=== PATIENT | male | born 1940 | race Caucasian/White ===

== ENCOUNTER 2016-06-07 22:17 | Inpatient (IN) | payer MEDICARE, OTHER ==
[~2016-06-07] VITALS: Ht 165.1 cm; Wt 59.6 kg
[~2016-06-07 22:17] MED LIST: AMLO10 PO; CIPR500T4 PO; ZOFR4TAB3 SL
[2016-06-07 22:36] VITALS: BP 145/63; PULSE 56; RESP 22; TEMP 97.9; O2SAT 97
[2016-06-08 00:24] LABS: AUTOMATED NEUTROPHIL # 4.3 TH/MM3 (1.8-7.7); BASOPHIL % 0.6 % (0.0-2.0); EOSINOPHIL # 0.4 TH/MM3 (0-0.4); EOSINOPHIL % 5.4 % (0.0-4.0); HEMATOCRIT 36.3 % (39.0-51.0); HEMO FLAGS DIFF FINAL; LYMPH % 20.1 % (9.0-44.0); LYMPHOCYTE # 1.3 TH/MM3 (1.0-4.8); MEAN CELL VOLUME 85.1 FL (80.0-100.0); MEAN CORPUSCULAR HEMOGLOBIN 28.5 PG (27.0-34.0); MEAN CORPUSCULAR HGB CONC 33.5 % (32.0-36.0); MONO % 9.1 % (0.0-8.0); NEUT % 64.8 % (16.0-70.0); PLATELET COUNT 184 TH/MM3 (150-450); RED BLOOD COUNT 4.27 MIL/MM3 (4.50-5.90); RED CELL DISTRIBUTION WIDTH 13.5 % (11.6-17.2); WHITE BLOOD COUNT 6.6 TH/MM3 (4.0-11.0)
[2016-06-08 00:28] LABS: AMPHETAMINE, URINE NEG (NEG); BARBITURATES, URINE NEG (NEG); COCAINE, URINE NEG (NEG)
[2016-06-08 00:53] LABS: ALT (GPT) 29 U/L (12-78); ANION GAP 5 MEQ/L (5-15); AST (GOT) 24 U/L (15-37); BICARBONATE 29.7 MEQ/L (21.0-32.0); BLOOD UREA NITROGEN 24 MG/DL (7-18); CHLORIDE 109 MEQ/L (98-107); GLOMERULAR FILTRATION RATE 86 ML/MIN (>89); POTASSIUM 4.1 MEQ/L (3.5-5.1); SODIUM (NA) 144 MEQ/L (136-145)
[2016-06-08 00:55] LABS: ALKALINE PHOSPHATASE 92 U/L (45-117); TOTAL BILIRUBIN ADULT 0.7 MG/DL (0.2-1.0)
--- NOTE | 2016-06-08 01:22 | PD ---
HPI Chief Complaint: Psychiatric Symptoms Time Seen by Provider: 23:23 Travel History International Travel<30 days: No Contact w/Intl Traveler<30days: No Traveled to known affect area: No History of Present Illness HPI The patient 76 years old. He has arrived by EMS as a allen act. He suffers with schizophrenic disease and was found essentially walking around in public evidently due to homelessness and psychosis. He was brought to the [facility], [place] facility for treatment however upon arrival was observed to have a Matthews catheter. As that is beyond the scope care he was sent to the ER for management. Here the patient offers minimal valuable history. Psychiatric screening orders were placed. Urinalysis also will be sent. If positive the Matthews catheter will be replaced and the patient will receive Rocephin and Bactrim prescription is prior culture isolates were sensitive to Bactrim. PFSH Past Medical History Anxiety: Yes Depression: Yes Cardiovascular Problems: Yes Diminished Hearing: No Genitourinary: Yes (retention/indwelling cath SINCE 2006) Hypertension: Yes Kidney Stones: Yes Musculoskeletal: Yes Psychiatric: Yes Integumentary: Yes (BILATERAL LOWER LEG CELLULITIS) Past Surgical History Other Surgery: Yes (2007 hernia, had matthews since then) Social History Alcohol Use: No Tobacco Use: No Substance Use: No Allergies-Medications (Allergen,Severity, Reaction): Coded Allergies: Penicillin (Unverified Allergy, Unknown, 05/24/15) *MDRO Multi-Drug Resistant Organism (Unverified Adverse Reaction, Unknown , 05/28/15) 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 HEAD: Atraumatic. Normocephalic. EYES: Pupils equal and round. No scleral icterus. No injection or drainage. ENT: No nasal bleeding or discharge. Mucous membranes pink and moist. NECK: Trachea midline. No JVD. CARDIOVASCULAR: Regular rate and rhythm. No murmur appreciated. RESPIRATORY: No accessory muscle use. Clear to auscultation. Breath sounds equal bilaterally. GASTROINTESTINAL: Abdomen soft, non-tender, nondistended. Hepatic and splenic margins not palpable. . GENITOURINARY: The patient has a large right inguinal hernia and a Matthews catheter in place. Hernia soft and nontender. MUSCULOSKELETAL: No obvious deformities. No clubbing. No cyanosis. No edema. NEUROLOGICAL: Awake and alert. No cranial nerve deficit. The patient is moving all extremities normally. Memory mentation are somewhat difficult to assess. PSYCHIATRIC: Patient has a history of schizophrenia. He is a difficult historian and it is unclear if he has any hallucination currently or suicidal or homicidal ideation. It is unless considered doubtful. Data Data Last Documented VS Vital Signs Date Time Temp Pulse Resp B/P Pulse Ox O2 Delivery O2 Flow Rate FiO2 06/07/16 22:36 97.9 56 22 145/63 97 Vital signs reviewed Orders Complete Blood Count With Diff (06/07/16 23:50) Comprehensive Metabolic Panel (06/07/16 23:50) Psych Screen (06/07/16 23:50) Drug Screen, Random Urine (06/07/16 23:50) Alcohol (Ethanol) (06/07/16 23:50) Urinalysis - C+S If Indicated (06/08/16 01:24) Labs Laboratory Tests Test 06/08/16 00:05 White Blood Count 6.6 TH/MM3 Red Blood Count 4.27 MIL/MM3 Hemoglobin 12.2 GM/DL Hematocrit 36.3 % Mean Corpuscular Volume 85.1 FL Mean Corpuscular Hemoglobin 28.5 PG Mean Corpuscular Hemoglobin 33.5 % Concent Red Cell Distribution Width 13.5 % Platelet Count 184 TH/MM3 Mean Platelet Volume 7.3 FL Neutrophils (%) (Auto) 64.8 % Lymphocytes (%) (Auto) 20.1 % Monocytes (%) (Auto) 9.1 % Eosinophils (%) (Auto) 5.4 % Basophils (%) (Auto) 0.6 % Neutrophils # (Auto) 4.3 TH/MM3 Lymphocytes # (Auto) 1.3 TH/MM3 Monocytes # (Auto) 0.6 TH/MM3 Eosinophils # (Auto) 0.4 TH/MM3 Basophils # (Auto) 0.0 TH/MM3 CBC Comment DIFF FINAL Differential Comment Sodium Level 144 MEQ/L Potassium Level 4.1 MEQ/L Chloride Level 109 MEQ/L Carbon Dioxide Level 29.7 MEQ/L Anion Gap 5 MEQ/L Blood Urea Nitrogen 24 MG/DL Creatinine 0.87 MG/DL Estimat Glomerular Filtration 86 ML/MIN Rate Random Glucose 137 MG/DL Calcium Level 8.6 MG/DL Total Bilirubin 0.7 MG/DL Aspartate Amino Transf 24 U/L (AST/SGOT) Alanine Aminotransferase 29 U/L (ALT/SGPT) Alkaline Phosphatase 92 U/L Total Protein 6.7 GM/DL Albumin 2.9 GM/DL Urine Opiates Screen NEG Urine Barbiturates Screen NEG Urine Amphetamines Screen NEG Urine Benzodiazepines Screen NEG Urine Cocaine Screen NEG Urine Cannabinoids Screen NEG Ethyl Alcohol Level LESS THAN 3 MG/DL MDM Medical Decision Making Medical Screen Exam Complete: Yes Emergency Medical Condition: Yes Medical Record Reviewed: Yes Differential Diagnosis Altered mental status/psychosis due to infection/environmental exposure/ metabolic abnormality, polypharmacy, alcohol abuse/intoxication, illicit or prescribed drug abuse, malingering/secondary gain, non-organic psychiatric disease Narrative Course The history of present illness, ROS, physical exam, review of records and medical workup performed for today's visit have reasonably safely excluded organic etiologies for the patient's presenting complaint. We will continue to monitor the patient carefully in the ER until time of evaluation by the psychiatry service. We are available for any additional medical assistance if needed during the patient's ER course. Disposition per discretion of psychiatry is appreciated. CBC & BMP Diagram 06/08/16 00:05 Urine drug screen negative Alcohol negative Urinalysis pending at time of dictation. If positive we will start Rocephin and provide a Bactrim prescription. The Matthews catheter will also be replaced. Diagnosis Primary Impression: Alfred Price MD Jun 08, 2016 01:22
[2016-06-08 01:50] LABS: BACTERIA, URINE RARE /hpf; BLOOD, URINE MOD (NEG); GLUCOSE,URINE NEG (NEG); KETONE, URINE NEG (NEG); MUCUS URINE FEW /lpf (OCC); NITRITE,URINE POS (NEG); PH, URINE 6.5 (5.0-8.5); RENAL EPITHELIAL CELLS 3 /hpf; SQUAMOUS EPITHELIAL CELL URINE 1 /hpf (0-5); URINE COLOR YELLOW (YELLW/STRAW)
[2016-06-08 01:51] LABS: COMMENT (UR) CATH-CULTURE IND; CULTURE IF INDICATED CATH CULTURE IND
[2016-06-08] MEDS ORDERED: BACT800T5 PO (01:55)
--- NOTE | 2016-06-08 01:55 | PD ---
Physical Exam Time Seen by Provider: 01:50 Data Data Last Documented VS Vital Signs Date Time Temp Pulse Resp B/P Pulse Ox O2 Delivery O2 Flow Rate FiO2 06/07/16 22:36 97.9 56 22 145/63 97 Orders Complete Blood Count With Diff (06/07/16 23:50) Comprehensive Metabolic Panel (06/07/16 23:50) Psych Screen (06/07/16 23:50) Drug Screen, Random Urine (06/07/16 23:50) Alcohol (Ethanol) (06/07/16 23:50) Urinalysis - C+S If Indicated (06/08/16 01:24) Urine Culture (06/08/16 00:05) Remove Urinary Catheter .ONCE (06/08/16 01:52) Urinary Catheter Management NICOLETTE.Q8H (06/08/16 01:52) Ceftriaxone Inj (Rocephin Inj) (06/08/16 02:00) Sulfamet-Trimeth Ds 800-160 Mg (Bactrim (06/08/16 02:00) Labs Laboratory Tests Test 06/08/16 00:05 White Blood Count 6.6 TH/MM3 Red Blood Count 4.27 MIL/MM3 Hemoglobin 12.2 GM/DL Hematocrit 36.3 % Mean Corpuscular Volume 85.1 FL Mean Corpuscular Hemoglobin 28.5 PG Mean Corpuscular Hemoglobin 33.5 % Concent Red Cell Distribution Width 13.5 % Platelet Count 184 TH/MM3 Mean Platelet Volume 7.3 FL Neutrophils (%) (Auto) 64.8 % Lymphocytes (%) (Auto) 20.1 % Monocytes (%) (Auto) 9.1 % Eosinophils (%) (Auto) 5.4 % Basophils (%) (Auto) 0.6 % Neutrophils # (Auto) 4.3 TH/MM3 Lymphocytes # (Auto) 1.3 TH/MM3 Monocytes # (Auto) 0.6 TH/MM3 Eosinophils # (Auto) 0.4 TH/MM3 Basophils # (Auto) 0.0 TH/MM3 CBC Comment DIFF FINAL Differential Comment Urine Color YELLOW Urine Turbidity CLOUDY Urine pH 6.5 Urine Specific Watson 1.022 Urine Protein 30 mg/dL Urine Glucose (UA) NEG mg/dL Urine Ketones NEG mg/dL Urine Occult Blood MOD Urine Nitrite POS Urine Bilirubin NEG Urine Urobilinogen LESS THAN 2.0 MG/DL Urine Leukocyte Esterase LARGE Urine RBC 31 /hpf Urine WBC /hpf Urine WBC Clumps MANY Urine Squamous Epithelial 1 /hpf Cells Urine Renal Epithelial Cells 3 /hpf Urine Amorphous Sediment RARE Urine Bacteria RARE /hpf Urine Mucus FEW /lpf Microscopic Urinalysis Comment CATH-CULTURE IND Sodium Level 144 MEQ/L Potassium Level 4.1 MEQ/L Chloride Level 109 MEQ/L Carbon Dioxide Level 29.7 MEQ/L Anion Gap 5 MEQ/L Blood Urea Nitrogen 24 MG/DL Creatinine 0.87 MG/DL Estimat Glomerular Filtration 86 ML/MIN Rate Random Glucose 137 MG/DL Calcium Level 8.6 MG/DL Total Bilirubin 0.7 MG/DL Aspartate Amino Transf 24 U/L (AST/SGOT) Alanine Aminotransferase 29 U/L (ALT/SGPT) Alkaline Phosphatase 92 U/L Total Protein 6.7 GM/DL Albumin 2.9 GM/DL Urine Opiates Screen NEG Urine Barbiturates Screen NEG Urine Amphetamines Screen NEG Urine Benzodiazepines Screen NEG Urine Cocaine Screen NEG Urine Cannabinoids Screen NEG Ethyl Alcohol Level LESS THAN 3 MG/DL MDM Medical Record Reviewed: Yes Supervised Visit with DIANE: No Narrative Course I have been asked to follow-up in this patient's urinalysis results. Please see previous providers as for complete history of present illness. Briefly this is a patient is here under Mondragon act. He has an indwelling Daniels catheter. His urinalysis is suggestive of urinary tract infection. Therefore the Daniels catheter will be removed and replaced. He will be given IV Rocephin as well as Bactrim. Unclear as to the length of time that the patient will be here psychiatrically so he will also be given a prescription for Bactrim to be placed in his box for outpatient use when he is discharged. I did speak to rehabilitation caseworker in regards to this patient's inability to care for himself and I have placed a rehabilitation caseworker consultation into the computer. Diagnosis Primary Impression: Mondragon Act Additional Impression: UTI (urinary tract infection) Qualified Code: T83.511A - Urinary tract infection associated with indwelling urethral catheter, initial encounter Scripts Sulfamethoxazole-Trimethoprim (Bactrim DS)800-160 Mg Tab1 Tab PO BID #20 TAB Ref 0 Prov:Alfred Montoya MD 06/08/16 Jama Ramos Jun 08, 2016 01:55
[2016-06-08] MEDS ORDERED: cefTRIAXone INJ 1,000 MG in SODIUM CHLORIDE 0.9% INJ 100 ML IV SCH (02:00)
[2016-06-08] MEDS ORDERED: SULFAMETHOXAZOLE-TRIMETHOPRIM DS 800-160 MG TAB PO ONE (02:00)
[2016-06-08 02:30] VITALS: BP 153/87; PULSE 82; RESP 16; O2SAT 95
[2016-06-08 06:30] VITALS: BP 136/84; PULSE 76; RESP 14; O2SAT 95
[2016-06-08] MEDS ORDERED: ALUMINUM/MAGNESIUM/SIMETH 30 ML CUP PO PRN (09:00)
[2016-06-08] MEDS ORDERED: LORazepam 2 MG/ML VIAL IM PRN (09:00)
[2016-06-08] MEDS ORDERED: diphenhydrAMINE HCL 50 MG CAP PO PRN (09:00)
[2016-06-08] MEDS ORDERED: BENZTROPINE MESYLATE 2 MG/2 ML VIAL IM PRN (09:00)
[2016-06-08] MEDS ORDERED: MAGNESIUM HYDROXIDE SUSP 30 ML CUP PO PRN (09:00)
[2016-06-08] MEDS ORDERED: LORazepam 0.5 MG TAB PO PRN (09:00)
[2016-06-08] MEDS ORDERED: BENZTROPINE MESYLATE 1 MG TAB PO PRN (09:00)
[2016-06-08] MEDS ORDERED: ACETAMINOPHEN 325 MG TAB PO PRN (09:00)
--- NOTE | 2016-06-08 09:09 | HHI.HP ---
Provisional Diagnosis Admission Date 06/08/2016 Hyde I. 1. Schizophrenia, undifferentiated type 2. Rule out some component of delirium from UTI, resolving or resolved Hyde II. Deferred Hyde V. GAF is 40 presently Certification of Person's Competence To Provide Express and Informed Consent I have personally examined Oral Curiel , a person being served at [facility] on, Jun 08, 2016 08:56. Express and informed consent means consent voluntarily given in writing, by a competent person, after sufficient explanation and disclosure of the subject matter involved to enable the person to make a knowing and willful decision without any element of force, fraud, deceit, duress, or other form of constraint or coercion. This person is 18 years of age or older, is not now known to be incompetent to consent to treatment with a guardian advocate, and does not have a health care surrogate or proxy currently making medical treatment decisions. I have found this person to be one of the following: [] Competent to provide express and informed consent, as defined above, for voluntary admission to this facility and is competent to provide express and informed consent for treatment. He/she has the consistent capacity to make well reasoned, willful, and knowing decisions concerning his or her medical or mental health treatment. The person fully and consistently understands the purpose of the admission for examination/placement and is fully capable of personally exercising all rights [place] [x] Incompetent to provide express and informed consent to voluntary admission, and this is incompetent to provide express and informed consent to treatment. The person must be transferred to involuntary status and a petition for a guardian advocate filed with the Circuit Court. [] Refusing to provide express and informed consent to voluntary admission but is competent to provide express and informed consent for treatment. The person must be discharged or transferred to involuntary status. Form shall be completed within 24 hours of a person's arrival at the receiving facility and filed in the clinical record of each person: 1. Admitted on a voluntary basis 2. Permitted to provide express and informed consent to his/her own treatment 3. Allowed to transfer from involuntary to voluntary status 4. Prior to permitting a person to consent to his or her own treatment after having been previously found incompetent to consent to treatment. History of Present Illness Capacity: Has Capacity HPI Mr. Curiel is a 76-year-old male with a history of schizophrenia who presents in transfer from [facility] where he presented under a Mondragon act from [facility]'s office alleging that the patient was wandering in [place]. He told the officer that he was homeless and had nowhere to stay and also told the officer that he had been staying at [facility] but left because he thought that people were torturing him and poisoning his food. Reviewing the electronic medical record, I see the patient was seen most recently by psychiatry here by Dr. Wayne in 2014 in consultation. I see no prior psychiatric admissions within our system. Patient seen and examined. Chart reviewed. Case discussed with nurse in the J- pod. On my examination today, the patient presents as quite childlike with diminished executive function. His hair is fairly well groomed, but he appears otherwise somewhat unkempt, with long, dirty fingernails. He is unable to tell me about his medications or how he plans to care for himself. He alleges "I was mistreated [at [facility]]. The manager dairy was talking about me. They insinuated I was ill." He denies any physical abuse by the staff there. He now denies that he thought his food was being poisoned. He refuses to return to [facility] at this time. He does admit to feeling somewhat depressed. He denies any suicidal or homicidal ideation however. He denies any audiovisual hallucinations. There may be some degree of paranoia present but I can elicit no other delusional material. The remainder of the psychiatric ROS is negative. Past psychiatric history: Patient reports a history of depression although there is a chart history of schizophrenia. He is not sure if he is currently under the care of a psychiatrist. He does think that he takes Risperdal but believes this is for anxiety. He denies any history of psychiatric admissions or suicide attempts. Review of Systems ROS Limitations: Poor Historian Except as stated in HPI: all other systems reviewed are Neg Past Psych History Psychological trauma history No reported trauma history to me Violence risk - others (6 mos) Low imminent risk. No homicidal ideation. No known history of violence. Violence risk - self (6 mos) Elevated due to self-neglect Substance Abuse History Drugs/Alcohol past 12 months Patient denies any abuse of drugs or alcohol. 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 Chart indicates this is long-standing since 2006. Active Scripts Sulfamethoxazole-Trimethoprim (Bactrim DS)800-160 Mg Tab1 Tab PO BID #20 TAB Ref 0 Prov:Alfred Montoya MD 06/08/16 Reported Medications Risperidone (Risperdal)0.5 Mg Tab0.5 Mg PO DAILY #30 TAB Ref 0 06/08/16 Lisinopril 20 Mg Tab20 Mg PO DAILY #30 TAB Ref 0 06/08/16 Amlodipine (Norvasc)10 Mg Tab10 Mg PO DAILY #30 TAB Ref 0 06/08/16 Discontinued Scripts Ciprofloxacin Hcl (Cipro)500 Mg Psf404 Mg PO Q12HR 5 Days Prov:Wu Herrera MD 05/25/15 Ondansetron (Zofran ODT)4 Mg Tab4 Mg SL Q4-6H PRN (nausea) #10 TAB FOR NAUSEA/VOMITING Prov:Uli Sadler MD 05/05/15 Amlodipine Besylate (Norvasc)10 Mg Tab10 Mg PO DAILY 30 Days Prov:Suzette Claudio PA-C 04/14/15 Current Medications Medications (Trade) Dose Ordered Sig/Christi Route Start Time Stop Time Status Last Admin (Rocephin Inj/NS Inj) 100 ml @ 200 mls/hr Q24H IV 06/08/16 02:00 06/08/16 04:02 (Bactrim Ds 800-160 Mg) 1 tab BID PO 06/08/16 09:00 UNV Family History Patient denies any family history of serious mental illness or suicide. Social History Patient reports that he has been living at [facility] since of last year. Prior to that he says that he was hospitalized at [facility] for pneumonia. He is high school educated. He is single with no children. He denies any or legal history. He declines to discuss his methodist beliefs. No reported access to guns or firearms. Patient's Strengths (min. 2) In a monitored setting. Verbally fluent. Physical Exam Physical examination completed by ED provider. On my examination today, the patient appears to be disheveled but in no acute physical distress. No motoric abnormalities noted. Laboratories and vital signs reviewed: Vital Signs Vital Signs Date Time Temp Pulse Resp B/P Pulse Ox O2 Delivery O2 Flow Rate FiO2 06/08/16 06:30 76 14 136/84 95 Room Air 06/07/16 22:36 97.9 Lab Results Item Value Date Time White Blood Count 6.6 TH/MM3 06/08/164 Hemoglobin 12.2 GM/DL L 06/08/164 Platelet Count 184 TH/MM3 06/08/164 Sodium Level 144 MEQ/L 06/08/164 Potassium Level 4.1 MEQ/L 06/08/164 Chloride Level 109 MEQ/L H 06/08/164 Anion Gap 5 MEQ/L 06/08/164 Blood Urea Nitrogen 24 MG/DL H 06/08/164 Creatinine 0.87 MG/DL 06/08/164 Estimat Glomerular Filtration Rate 86 ML/MIN L 06/08/164 Aspartate Amino Transf (AST/SGOT) 24 U/L 06/08/164 Alanine Aminotransferase (ALT/SGPT) 29 U/L 06/08/164 Alkaline Phosphatase 92 U/L 06/08/164 Toxicology is negative. Urinalysis is concerning for UTI and urine culture is pending. Mental Status Examination Patient is casually dressed. He is somewhat disheveled as noted above. He is awake and alert and oriented to person, place and date. His registration is 3 out of 3 in his recall is 3 out of 3 at 3 minutes. He is able to name 2 items. He does struggle to repeat a phrase. He is able to name the last several presidents [employer] through [employer]. He knows that World War II concluded in the . Speech is somewhat singsong but otherwise within normal limits for rate , tone and volume. Language and fund of knowledge seem fair. Mood is somewhat depressed and affect is childlike. Thought process circumstantial. No loosening of associations. Possibly some paranoia but no other delusional material. Denies audiovisual hallucinations. Denies suicidal or homicidal ideation. Insight and judgment seem poor. Assessment & Plan Problem List: (1) Psychosis ICD Code: F29 Assessment & Plan This is a 76-year-old male with psychiatric history as detailed above who presents under a Mondragon act. Patient apparently wandered away from his facility alleging to the officer that they were poisoning him there. The patient denies that he is being poisoned to me now but does allege that he was being verbally mistreated. He is declining to return to the facility. It is unclear presently if this believe has a psychotic basis, although I do suspect that the patient chronically struggles with psychotic illness and his interepisodic level of functioning may be poor. It is my belief that the patient cannot be safely discharged at this time because he is refusing to return to his facility and I'm concerned that he is unable to care for himself outside of a monitored setting. I will admit the patient to the inpatient psychiatric unit for observation, stabilization of necessary and eventual placement hopefully back at his originating facility. Admitted inpatient. Involuntary status. I started petition. Consult for second opinion. HCS/GA. Consult to the hospitalist for medical management. I' ll continue the Bactrim while awaiting culture for the UTI. I have order that the nursing staff obtain a medication list from patient's facility to clarify the doses of his psychotropics and any other medications. In the meantime Ativan as needed for anxiety, Cogentin as needed for EPS, Benadryl as needed for sleep. PT/falls. Vitals every shift. Counselor to see. Disposition planning. Estimated length of stay: 5-7 days. 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
[2016-06-08 10:00] VITALS: BP 170/74; PULSE 55; RESP 14; TEMP 97.9; O2SAT 95
[2016-06-08] MEDS: SULFAMETHOXAZOLE-TRIMETHOPRIM DS 800-160 MG TAB PO SCH ×2 (10:00→22:12)
[2016-06-08] MEDS: NICOTINE 21 MG/24 HR PATCH T-DERMAL SCH (10:00)
[2016-06-08] MEDS ORDERED: cloNIDine HCL 0.1 MG TAB PO PRN (12:00)
--- NOTE | 2016-06-08 12:09 | PD.CONS ---
HPI Service [facility] Hospitalists Consult Requested By Dr. Lawrence Reason for Consult Medical management Primary Care Physician Unknown Diagnoses: History of Present Illness The patient is a 76-year-old male with a past medical history of schizoaffective disorder and a chronic indwelling Daniels catheter who is presenting to the hospital after being found wandering in the streets. Apparently the patient has been staying at a facility but decided to leave the facility because he believes they were taking advantage of him and torturing him. The patient stated that his facility was very depressing. He said he was wandering the streets when a nice young man offered to help him. The patient ended up at [facility], however, the patient was transported to [place] as they are unable to accommodate a patient with chronic indwelling Daniels catheter. The patient was evaluated by psychiatry in the emergency department. The patient says that he was recently in [facility] for problems with his indwelling Daniels catheter. He says he has a hernia in his scrotum that has not changed. He says he is sometimes prone to constipation. He does endorse depression. 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 Past Medical History Schizoaffective disorder Chronic indwelling Daniels catheter History of UTIs Anxiety Depression Kidney stones Hernia Active Ordered Medications Current Medications Medications (Trade) Dose Ordered Sig/Christi Route Start Time Stop Time Status Last Admin (Rocephin Inj/NS Inj) 100 ml @ 200 mls/hr Q24H IV 06/08/16 02:00 06/08/16 04:02 (Bactrim Ds 800-160 Mg) 1 tab BID PO 06/08/16 10:00 (Ativan) 0.5 mg Q12H PRN PO 06/08/16 09:00 (Ativan Inj) 0.5 mg Q12H PRN IM 06/08/16 09:00 (Benadryl) 50 mg HS PRN PO 06/08/16 09:00 (Tylenol) 650 mg Q4H PRN PO 06/08/16 09:00 (Milk Of Magnesia Liq) 30 ml DAILY PRN PO 06/08/16 09:00 (Mag-Al Plus Susp Liq) 30 ml Q6H PRN PO 06/08/16 09:00 (Habitrol 21 Mg Patch.24 Hr) 1 patch DAILY T-DERMAL 06/08/16 10:00 (Cogentin) 1 mg Q12H PRN PO 06/08/16 09:00 (Cogentin Inj) 1 mg Q12H PRN IM 06/08/16 09:00 Miscellaneous Information 1 DAILY T-DERMAL 06/09/16 09:00 Family History The patient denies pertinent family history. Social History The patient does not smoke, drink or use illicit drugs. Physical Exam Vital Signs Vital Signs Date Time Temp Pulse Resp B/P Pulse Ox O2 Delivery O2 Flow Rate FiO2 06/08/16 10:00 97.9 55 14 170/74 95 Room Air 06/08/16 06:30 76 14 136/84 95 Room Air 06/08/16 02:30 82 16 153/87 95 Room Air 06/07/16 22:36 97.9 56 22 145/63 97 Physical Exam GENERAL: Resting comfortably and in no distress. SKIN: Warm/dry. HEAD: Atraumatic. Normocephalic. EYES: Pupils equal and round. No scleral icterus. No injection or drainage. ENT: No nasal bleeding or discharge. Mucous membranes pink and moist. NECK: Trachea midline. No JVD. CARDIOVASCULAR: Regular rate and rhythm. No murmur appreciated. RESPIRATORY: No accessory muscle use. Clear to auscultation. Breath sounds equal bilaterally. GASTROINTESTINAL: Abdomen soft, non-tender, nondistended. Hepatic and splenic margins not palpable. . GENITOURINARY: The patient has a large right inguinal hernia and a Daniels catheter in place. Hernia soft and nontender. MUSCULOSKELETAL: No obvious deformities. No clubbing. No cyanosis. No edema. NEUROLOGICAL: Awake and alert. No cranial nerve deficit. The patient is moving all extremities normally. PSYCHIATRIC: Calm. Laboratory Laboratory Tests Test 06/08/16 00:05 White Blood Count 6.6 Red Blood Count 4.27 Hemoglobin 12.2 Hematocrit 36.3 Mean Corpuscular Volume 85.1 Mean Corpuscular Hemoglobin 28.5 Mean Corpuscular Hemoglobin 33.5 Concent Red Cell Distribution Width 13.5 Platelet Count 184 Mean Platelet Volume 7.3 Neutrophils (%) (Auto) 64.8 Lymphocytes (%) (Auto) 20.1 Monocytes (%) (Auto) 9.1 Eosinophils (%) (Auto) 5.4 Basophils (%) (Auto) 0.6 Neutrophils # (Auto) 4.3 Lymphocytes # (Auto) 1.3 Monocytes # (Auto) 0.6 Eosinophils # (Auto) 0.4 Basophils # (Auto) 0.0 CBC Comment DIFF FINAL Differential Comment Urine Color YELLOW Urine Turbidity CLOUDY Urine pH 6.5 Urine Specific [place] 1.022 Urine Protein 30 Urine Glucose (UA) NEG Urine Ketones NEG Urine Occult Blood MOD Urine Nitrite POS Urine Bilirubin NEG Urine Urobilinogen LESS THAN 2.0 Urine Leukocyte Esterase LARGE Urine RBC 31 Urine WBC Urine WBC Clumps MANY Urine Squamous Epithelial 1 Cells Urine Renal Epithelial Cells 3 Urine Amorphous Sediment RARE Urine Bacteria RARE Urine Mucus FEW Microscopic Urinalysis Comment CATH-CULTURE IND Sodium Level 144 Potassium Level 4.1 Chloride Level 109 Carbon Dioxide Level 29.7 Anion Gap 5 Blood Urea Nitrogen 24 Creatinine 0.87 Estimat Glomerular Filtration 86 Rate Random Glucose 137 Calcium Level 8.6 Total Bilirubin 0.7 Aspartate Amino Transf 24 (AST/SGOT) Alanine Aminotransferase 29 (ALT/SGPT) Alkaline Phosphatase 92 Total Protein 6.7 Albumin 2.9 Urine Opiates Screen NEG Urine Barbiturates Screen NEG Urine Amphetamines Screen NEG Urine Benzodiazepines Screen NEG Urine Cocaine Screen NEG Urine Cannabinoids Screen NEG Ethyl Alcohol Level LESS THAN 3 Date/Time Procedure Status Source Growth 06/08/16 00:05 Urine Culture Received Urine Catheterized Urine Pending Result Diagram: 06/08/16 0005 06/08/16 0005 Assessment and Plan Assessment and Plan Schizoaffective disorder The patient has been admitted to psychiatry. He is currently calm and cooperative at this time. - Management per psychiatry. Indwelling Daniels catheter/ UTI The patient has an indwelling Daniels catheter secondary to retention and is prone to urinary tract infections. His Daniels catheter was replaced in the emergency department. He received a dose of IV ceftriaxone. - Continue by mouth Bactrim for now. - Follow urine culture. - Maintain Daniels hygiene. Hypertension Blood pressure has been elevated. Chronic problem. The patient had been on amlodipine in the past. - Resume amlodipine 10 mg by mouth daily. - Add additional medications as needed. - Clonidine as needed. Right inguinal hernia Chronic. The patient has no symptoms related to it. - Continue to monitor. Hyperglycemia Hemoglobin A1c in 2014 was not elevated. - Repeat hemoglobin A1c at this time. PPx: Ambulation. Discussed Condition With Patient, nurse. Pedro Bernstein DO Jun 08, 2016 12:09
--- NOTE | 2016-06-08 12:58 | PD ---
History of Present Illness Chief Complaint: Psychiatric Symptoms Time Seen by Provider: 12:30 Travel History International Travel<30 Days: No Contact w/Intl Traveler<30days: No Known affected area: No Legal Status Legal Status: Mondragon Act Mondragon Act Signed By: Camilo Blackwell History of Present Illness: Patient seen in the emergency department as a result of consultation by Dr. Mendez. He is a 76-year-old male with a reported history of schizophrenia, feeling paranoid and currently homeless. It is quite difficult to follow the patient's line of conversation because of loose associations. However, the patient does admit that he is homeless and that he felt persecuted at his last residence. This physician reviewed the H&P written by Dr. Ashlee valenzuela and this physician agrees with the civil commitment. Patient is unable to care for himself and continues to suffer from symptoms of schizophrenia. PFSH Past Medical History Anxiety: Yes Depression: Yes Cardiovascular Problems: Yes Diminished Hearing: No Genitourinary: Yes (retention/indwelling cath SINCE 2006) Hypertension: Yes Implanted Vascular Access Dvce: No Kidney Stones: Yes Musculoskeletal: Yes Psychiatric: Yes Integumentary: Yes (BILATERAL LOWER LEG CELLULITIS) Tetanus Vaccination: Unknown Past Surgical History Other Surgery: Yes (2007 hernia, had matthews since then) Psychiatric History Psychiatric History Hx Psychiatric Treatment: PT REPORTS ANXIETY Records indicate the patient has a history of schizophrenia. 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 Ashlee valenzuela. This physician agrees with civil commitment and cosigned paperwork. Request HC Surrog/Guard Advoc?: No Orders Complete Blood Count With Diff (06/07/16 23:50) Comprehensive Metabolic Panel (06/07/16 23:50) Psych Screen (06/07/16 23:50) Drug Screen, Random Urine (06/07/16 23:50) Alcohol (Ethanol) (06/07/16 23:50) Urinalysis - C+S If Indicated (06/08/16 01:24) Urine Culture (06/08/16 00:05) Remove Urinary Catheter .ONCE (06/08/16 01:52) Urinary Catheter Management NICOLETTE.Q8H (06/08/16 01:52) Ceftriaxone Inj (Rocephin Inj) (06/08/16 02:00) Sulfamet-Trimeth Ds 800-160 Mg (Bactrim (06/08/16 02:00) Case Management Consult (06/08/16 ) Admit Order (Ed Use Only) (06/08/16 ) Sulfamet-Trimeth Ds 800-160 Mg (Bactrim (06/08/16 10:00) Admit To Inpatient Psych (06/08/16 ) Vital Signs (Adult) NICOLETTE.Q12H.E (06/08/16 08:53) Activity Oob Ad Melodie (06/08/16 08:53) Level Of Observation (Psych) (06/08/16 08:53) Aims-Abnormal Invol Move Scale ONCE (06/08/16 08:53) Lorazepam (Ativan) (06/08/16 09:00) Lorazepam Inj (Ativan Inj) (06/08/16 09:00) Diphenhydramine (Benadryl) (06/08/16 09:00) Acetaminophen (Tylenol) (06/08/16 09:00) Magnesium Hydroxide Liq (Milk Of Magnesi (06/08/16 09:00) Al-Mag Hy-Si 40-40-4 Mg/Ml Liq (Mag-Al P (06/08/16 09:00) Nicotine 21 Mg Patch.24 Hr (Habitrol 21 (06/08/16 10:00) Benztropine (Cogentin) (06/08/16 09:00) Benztropine Inj (Cogentin Inj) (06/08/16 09:00) Basic Metabolic Panel (Bmp) (06/09/16 06:00) Lipid Profile (06/09/16 06:00) Hemoglobin (Hgb) A1c (06/09/16 06:00) Consult Hospitalist (06/08/16 ) Consult Pt Eval & Treat (06/08/16 08:53) ^ Fall Precautions (06/08/16 08:53) ^ Other Nursing Orders (06/08/16 08:55) Remove Old Patch (06/09/16 09:00) (Hub Use Only)Inp Phy Cons/Ref (06/08/16 ) Consult Psychiatry (06/08/16 ) (Hub Use Only)Inp Phy Cons/Ref (06/08/16 ) Clonidine (Catapres) (06/08/16 12:00) Hemoglobin (Hgb) A1c (06/08/16 12:06) Amlodipine (Norvasc) (06/08/16 13:00) Results Vital Signs Date Time Temp Pulse Resp B/P Pulse Ox O2 Delivery O2 Flow Rate FiO2 06/08/16 10:00 97.9 55 14 170/74 95 Room Air 06/08/16 06:30 76 14 136/84 95 Room Air 06/08/16 02:30 82 16 153/87 95 Room Air 06/07/16 22:36 97.9 56 22 145/63 97 Laboratory Tests Test 06/08/16 00:05 White Blood Count 6.6 Red Blood Count 4.27 Hemoglobin 12.2 Hematocrit 36.3 Mean Corpuscular Volume 85.1 Mean Corpuscular Hemoglobin 28.5 Mean Corpuscular Hemoglobin 33.5 Concent Red Cell Distribution Width 13.5 Platelet Count 184 Mean Platelet Volume 7.3 Neutrophils (%) (Auto) 64.8 Lymphocytes (%) (Auto) 20.1 Monocytes (%) (Auto) 9.1 Eosinophils (%) (Auto) 5.4 Basophils (%) (Auto) 0.6 Neutrophils # (Auto) 4.3 Lymphocytes # (Auto) 1.3 Monocytes # (Auto) 0.6 Eosinophils # (Auto) 0.4 Basophils # (Auto) 0.0 CBC Comment DIFF FINAL Differential Comment Urine Color YELLOW Urine Turbidity CLOUDY Urine pH 6.5 Urine Specific [place] 1.022 Urine Protein 30 Urine Glucose (UA) NEG Urine Ketones NEG Urine Occult Blood MOD Urine Nitrite POS Urine Bilirubin NEG Urine Urobilinogen LESS THAN 2.0 Urine Leukocyte Esterase LARGE Urine RBC 31 Urine WBC Urine WBC Clumps MANY Urine Squamous Epithelial 1 Cells Urine Renal Epithelial Cells 3 Urine Amorphous Sediment RARE Urine Bacteria RARE Urine Mucus FEW Microscopic Urinalysis Comment CATH-CULTURE IND Sodium Level 144 Potassium Level 4.1 Chloride Level 109 Carbon Dioxide Level 29.7 Anion Gap 5 Blood Urea Nitrogen 24 Creatinine 0.87 Estimat Glomerular Filtration 86 Rate Random Glucose 137 Calcium Level 8.6 Total Bilirubin 0.7 Aspartate Amino Transf 24 (AST/SGOT) Alanine Aminotransferase 29 (ALT/SGPT) Alkaline Phosphatase 92 Total Protein 6.7 Albumin 2.9 Urine Opiates Screen NEG Urine Barbiturates Screen NEG Urine Amphetamines Screen NEG Urine Benzodiazepines Screen NEG Urine Cocaine Screen NEG Urine Cannabinoids Screen NEG Ethyl Alcohol Level LESS THAN 3 Date/Time Procedure Status Source Growth 06/08/16 00:05 Urine Culture Received Urine Catheterized Urine Pending Diagnosis Primary Impression: Mondragon Act Additional Impression: UTI (urinary tract infection) Prescriptions Sulfamethoxazole-Trimethoprim (Bactrim DS)800-160 Mg Tab1 Tab PO BID #20 TAB Ref 0 Prov:Alfred Montoya MD 06/08/16 Problem Qualifiers Additional Impression: UTI (urinary tract infection) Qualified Code: T83.511A - Urinary tract infection associated with indwelling urethral catheter, initial encounter Jona Bertrand MD Jun 08, 2016 12:58
[2016-06-08 13:29] VITALS: BP 211/92; PULSE 60; RESP 18; TEMP 97.4; O2SAT 98
[2016-06-08] MEDS ORDERED: RISP0.5T20 PO (13:50)
[2016-06-08] MEDS ORDERED: LISI-515 PO (13:50)
[2016-06-08] MEDS ORDERED: AMLO10 PO (13:50)
[2016-06-08 14:43] VITALS: BP 148/78; PULSE 60
[2016-06-08 17:00] LABS: HEMOGLOBIN A1a 1.1 %; HEMOGLOBIN A1b 0.7 %; HEMOGLOBIN Ao 86.2 %; HEMOGLOBIN F 1.2 %; HEMOGLOBIN LA1C 1.9 %; HEMOGLOBIN P3 3.4 %
[2016-06-08 19:40] VITALS: BP 172/74; PULSE 61; RESP 18; TEMP 97.5; O2SAT 95
[2016-06-09 05:42] VITALS: BP 135/64; PULSE 73; RESP 18; TEMP 97.9; O2SAT 95
[2016-06-09] MEDS: SULFAMETHOXAZOLE-TRIMETHOPRIM DS 800-160 MG TAB PO SCH ×3 (09:00→22:36)
[2016-06-09] MEDS: NICOTINE 21 MG/24 HR PATCH T-DERMAL SCH (09:00)
[2016-06-09] MEDS: REMOVE OLD PATCH T-DERMAL SCH (09:00)
--- NOTE | 2016-06-09 09:38 | HHI.PR ---
Subjective Remarks Follow-up on patient with chronic indwelling Daniels catheter and urinary tract infection. Patient seen and examined today. Patient witnessed eating large amount of his breakfast. Patient reports that he is doing well today. He has no acute medical complaints. He denies any fever/chills, nausea/vomiting, dizziness, palpitations, shortness of breath, chest pain, abdominal pain or diarrhea. Patient cannot recall when he had his last bowel movement. Objective Vitals Vital Signs Date Time Temp Pulse Resp B/P Pulse Ox O2 Delivery O2 Flow Rate FiO2 06/09/16 05:42 97.9 73 18 135/64 95 06/08/16 19:40 97.5 61 18 172/74 95 06/08/16 14:43 60 148/78 06/08/16 13:29 97.4 60 18 211/92 98 06/08/16 10:00 97.9 55 14 170/74 95 Room Air I/O 06/08/16 06/08/16 06/08/16 06/09/16 06/09/16 06/09/16 07:00 15:00 23:00 07:00 15:00 23:00 Intake Total 670 ml 460 ml Output Total 450 ml 250 ml Balance 220 ml 210 ml Intake Oral 550 ml 460 ml Oral Supplement 120 ml Output Urine Total 450 ml 250 ml # Voids 1 Result Diagram: 06/08/16 0005 06/08/16 0005 Objective Remarks GENERAL: Resting comfortably and in no distress. Awake and alert. Lying in hospital bed in med/psych floor. SKIN: Warm/dry. HEAD: Atraumatic. Normocephalic. EYES: EOMI. CARDIOVASCULAR: Regular rate and rhythm. No murmur appreciated. RESPIRATORY: No accessory muscle use. Clear to auscultation. Breath sounds equal bilaterally. GASTROINTESTINAL: Abdomen soft, non-tender, nondistended. Hepatic and splenic margins not palpable. GENITOURINARY: The patient has a large right inguinal hernia and a Daniels catheter in place. Hernia soft and nontender. MUSCULOSKELETAL: No obvious deformities. No clubbing. No cyanosis. No edema. NEUROLOGICAL: Awake and alert. No focal neurologic findings appreciated. The patient is moving all extremities normally. PSYCHIATRIC: Calm. Medications and IVs Current Medications Medications (Trade) Dose Ordered Sig/Christi Route Start Time Stop Time Status Last Admin (Bactrim Ds 800-160 Mg) 1 tab BID PO 4/18/17 10:00 06/08/16 22:12 (Ativan) 0.5 mg Q12H PRN PO 06/08/16 09:00 Hold (Ativan Inj) 0.5 mg Q12H PRN IM 06/08/16 09:00 Hold (Benadryl) 50 mg HS PRN PO 06/08/16 09:00 (Tylenol) 650 mg Q4H PRN PO 06/08/16 09:00 (Milk Of Magnesia Liq) 30 ml DAILY PRN PO 06/08/16 09:00 (Mag-Al Plus Susp Liq) 30 ml Q6H PRN PO 06/08/16 09:00 (Habitrol 21 Mg Patch.24 Hr) 1 patch DAILY T-DERMAL 06/08/16 10:00 (Cogentin) 1 mg Q12H PRN PO 06/08/16 09:00 (Cogentin Inj) 1 mg Q12H PRN IM 06/08/16 09:00 Miscellaneous Information 1 DAILY T-DERMAL 06/09/16 09:00 (Catapres) 0.1 mg Q6H PRN PO 06/08/16 12:00 (Norvasc) 10 mg DAILY PO 06/08/16 13:00 06/08/16 13:00 A/P Assessment and Plan This is a 76-year-old male with a past medical history of schizoaffective disorder and chronic indwelling Daniels catheter known to have a history of recurrent urinary tract infections. Hospitalist service consulted for medical management. //Schizoaffective disorder Management per psychiatric team //Chronic indwelling Daniels catheter Daniels catheter changed in the ED department prior to his admission //UTI Patient receive a dose of IV ceftriaxone in the ED Now on oral Bactrim, continue Follow up on urine culture results //HTN,chronic Well-controlled at present, BP 135/64 Continue with amlodipine 10 mg daily Adjust hypertensive medications as needed Clonidine when necessary with parameters //Right inguinal hernia, chronic Patient is asymptomatic Continue to monitor //Hyperglycemia Elevated blood sugar 137 Follow-up A1c 5.2 No indication for diabetic intervention //Possible constipation Patient not sure of last BM no complaints of abdominal pain/discomfort stool softener Monitor for BM DVT prophylaxis Encourage ambulation Discussed with patient, nursing staff and Paola Santo PA Jun 09, 2016 09:38
--- NOTE | 2016-06-09 11:26 | HHI.PYPN ---
Subjective Remarks Patient was able psychiatric evaluation today along with child protective services social worker Jasmin, patient was found calm, cooperative and pleasant, patient says that he has been feeling okay, he describes good mood, reports good appetite, fair level of energy, but decreased and dysfunctional sleep at night. Patient denies suicidal and homicidal ideation, patient denies visual and auditory hallucinations. Patient seems to be kind of paranoid about staff in his living facility, he refused to go back stating that "these people even wanted to kill me there", but will not elaborate about details explanation about reported mistreatment. Patient is fully oriented 3, his logical, coherent and relevant. No agitation or aggressive behavior has been reported. He becomes slightly agitated and hostile every time that he has to talk about his residential facility, but usually redirectable. Review of Systems Other Significant changes since 06/10/2016 Objective Alert: Yes [place]: Person, Place, Date, Situation Mood: Calm Affect: Restricted Memory Intact: Immediate, Recent, Remote Hallucinations: Other (he denies) Delusions: Yes Delusion Type: Paranoid Suicidal: Ideation (he denies) Homicidal: Ideation (he denies) Insight/Judgment poor Labs Date/Time Procedure Status Source Growth 06/08/16 00:05 Urine Culture Received Urine Catheterized Urine Pending Vitals/IOs Vital Signs Date Time Temp Pulse Resp B/P Pulse Ox O2 Delivery O2 Flow Rate FiO2 06/09/16 05:42 97.9 73 18 135/64 95 06/08/16 10:00 Room Air Intake and Output 06/08/16 06/08/16 06/09/16 08:00 16:00 00:00 Intake Total 790 ml Output Total 450 ml Balance 340 ml Assessment & Plan Problem List: (1) Psychosis Assessment & Plan: Patient continues to be paranoid about his most current living facility and staff. Agitated when he has to talk about it. We will start Seroquel 25 mg at bedtime to help with psychosis and sleep. Hospitalist input appreciated. ICD Code: F29 Assessment & Plan Estimated LOS: days Justification for Cont. Inpt. Patient is acutely psychotic, paranoid, unable to survive and take care of himself independently in the community. He needs to continue psychiatric hospitalization for stabilization and coordination of safe discharge. 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 MD Jun 09, 2016 11:26
[2016-06-09] MEDS: DOCUSATE SODIUM 100 MG CAP PO SCH ×2 (15:00→22:36)
[2016-06-09] MEDS: ARIPiprazole 5 MG TAB PO SCH (15:15)
[2016-06-09 20:02] VITALS: BP 172/76; PULSE 60; RESP 16; TEMP 98.6; O2SAT 97
[2016-06-09] MEDS ORDERED: QUEtiapine FUMARATE 25 MG TAB PO SCH (21:30)
[2016-06-10 06:06] VITALS: BP 153/72; PULSE 60; RESP 16; TEMP 97.5; O2SAT 96
--- NOTE | 2016-06-10 08:00 | HHI.PR ---
Subjective Remarks Follow-up on patient with chronic indwelling Daniels catheter and urinary tract infection. Patient seen and examined today. Patient reports that he slept well. He denies any complaints of fever/chills, nausea/vomiting, palpitations, dizziness chest pain, abdominal pain, diarrhea or constipation. He reports a bowel movement yesterday morning. He denies any other complaints. Objective Vitals Vital Signs Date Time Temp Pulse Resp B/P Pulse Ox O2 Delivery O2 Flow Rate FiO2 06/10/16 06:06 97.5 60 16 153/72 96 06/09/16 20:02 98.6 60 16 172/76 97 I/O 06/09/16 06/09/16 06/09/16 06/10/16 06/10/16 06/10/16 07:00 15:00 23:00 07:00 15:00 23:00 Intake Total 460 ml 240 ml 240 ml Output Total 250 ml 350 ml 950 ml Balance 210 ml -110 ml -710 ml Intake Oral 460 ml 240 ml 240 ml Output Urine Total 250 ml 350 ml 950 ml # Voids 1 1 Result Diagram: 06/08/16 0005 06/08/16 0005 Objective Remarks GENERAL: Resting comfortably and in no distress. Sleeping but easily arousable. Lying in hospital bed in med/psych floor. SKIN: Warm/dry. HEAD: Atraumatic. Normocephalic. EYES: EOMI. CARDIOVASCULAR: Regular rate and rhythm. No murmur appreciated. RESPIRATORY: No accessory muscle use. Clear to auscultation. Breath sounds equal bilaterally. GASTROINTESTINAL: Abdomen soft, non-tender, nondistended. Hepatic and splenic margins not palpable. GENITOURINARY: The patient has a large right inguinal hernia and a Daniels catheter in place. Hernia soft and nontender. MUSCULOSKELETAL: No obvious deformities. No clubbing. No cyanosis. No edema. NEUROLOGICAL: Awake and alert. No focal neurologic findings appreciated. The patient is moving all extremities normally. PSYCHIATRIC: Calm. Medications and IVs Current Medications Medications (Trade) Dose Ordered Sig/Christi Route Start Time Stop Time Status Last Admin (Bactrim Ds 800-160 Mg) 1 tab BID PO 06/08/16 10:00 06/09/16 22:36 (Ativan) 0.5 mg Q12H PRN PO 06/08/16 09:00 Hold (Ativan Inj) 0.5 mg Q12H PRN IM 06/08/16 09:00 Hold (Benadryl) 50 mg HS PRN PO 06/08/16 09:00 (Tylenol) 650 mg Q4H PRN PO 06/08/16 09:00 (Milk Of Magnesia Liq) 30 ml DAILY PRN PO 06/08/16 09:00 (Mag-Al Plus Susp Liq) 30 ml Q6H PRN PO 06/08/16 09:00 (Habitrol 21 Mg Patch.24 Hr) 1 patch DAILY T-DERMAL 06/08/16 10:00 (Cogentin) 1 mg Q12H PRN PO 06/08/16 09:00 (Cogentin Inj) 1 mg Q12H PRN IM 06/08/16 09:00 Miscellaneous Information 1 DAILY T-DERMAL 06/09/16 09:00 (Catapres) 0.1 mg Q6H PRN PO 06/08/16 12:00 (Norvasc) 10 mg DAILY PO 06/08/16 13:00 06/08/16 13:00 (Colace) 100 mg BID PO 06/09/16 15:00 06/09/16 22:36 (Abilify) 5 mg DAILY PO 06/09/16 15:15 A/P Assessment and Plan This is a 76-year-old male with a past medical history of schizoaffective disorder and chronic indwelling Daniels catheter known to have a history of recurrent urinary tract infections. Hospitalist service consulted for medical management. //Schizoaffective disorder Management per psychiatric team //Chronic indwelling Daniels catheter Daniels catheter changed in the ED department prior to his admission //UTI Patient receive a dose of IV ceftriaxone in the ED Now on oral Bactrim, continue Preliminary urine culture results positive for gram-negative rods Follow-up on I&S //HTN,chronic BP 153/72 this am. Appears to have blood pressure elevations in the late afternoon 170s/70s add on low dose Vasotec 2.5mg BID Continue with amlodipine 10 mg daily Adjust hypertensive medications as needed Clonidine when necessary with parameters //Right inguinal hernia, chronic Patient is asymptomatic Continue to monitor //Hyperglycemia Elevated blood sugar 137 Follow-up A1c 5.2 No indication for diabetic intervention //Possible constipation (+)BM yesterday am continue with stool softener Monitor for BM DVT prophylaxis Encourage ambulation Discussed with patient, nursing staff and Paola Santo Jun 10, 2016 08:00
[2016-06-10] MEDS ORDERED: ENALAPRIL MALEATE 2.5 MG TAB PO SCH (09:00)
[2016-06-10] MEDS: NICOTINE 21 MG/24 HR PATCH T-DERMAL SCH (09:00)
[2016-06-10] MEDS: REMOVE OLD PATCH T-DERMAL SCH (09:00)
[2016-06-10] MEDS: ARIPiprazole 5 MG TAB PO SCH (09:00)
[2016-06-10] MEDS: SULFAMETHOXAZOLE-TRIMETHOPRIM DS 800-160 MG TAB PO SCH (10:03)
[2016-06-10] MEDS: DOCUSATE SODIUM 100 MG CAP PO SCH (10:03)
[2016-06-10] MEDS ORDERED: AMLO10 PO (10:38)
[2016-06-10] MEDS ORDERED: DOCU1CAP39 PO (10:38)
[2016-06-10] MEDS ORDERED: ARIP1TAB11 PO (10:38)
--- NOTE | 2016-06-10 10:38 | HHI.DS ---
Psychiatry Discharge Summary Inpatient Psychiatric care?: Yes Advance Directive: No Reason Not Provided: PT DOES NOT HAVE ADVANCE DIRECTIVE Mental Health AdvanceDirective: No Health Care Proxy: No Admission Admission Date Jun 08, 2016 at 08:54 Admission Diagnosis: (1) Schizoaffective disorder ICD Code: F25.9 Brief History Mr. Curiel is a 76-year-old male with a history of schizophrenia who presents in transfer from [facility] where he presented under a Mondragon act from [facility]'s office alleging that the patient was wandering in [place]. He told the officer that he was homeless and had nowhere to stay and also told the officer that he had been staying at [facility] but left because he thought that people were torturing him and poisoning his food. Reviewing the electronic medical record, I see the patient was seen most recently by psychiatry here by Dr. Wayne in 2014 in consultation. I see no prior psychiatric admissions within our system. Patient seen and examined. Chart reviewed. Case discussed with nurse in the J- pod. On my examination today, the patient presents as quite childlike with diminished executive function. His hair is fairly well groomed, but he appears otherwise somewhat unkempt, with long, dirty fingernails. He is unable to tell me about his medications or how he plans to care for himself. He alleges "I was mistreated [at [place]]. The typewriter tester was talking about me. They insinuated I was ill." He denies any physical abuse by the staff there. He now denies that he thought his food was being poisoned. He refuses to return to [place] [facility] at this time. He does admit to feeling somewhat depressed. He denies any suicidal or homicidal ideation however. He denies any audiovisual hallucinations. There may be some degree of paranoia present but I can elicit no other delusional material. The remainder of the psychiatric ROS is negative. Past psychiatric history: Patient reports a history of depression although there is a chart history of schizophrenia. He is not sure if he is currently under the care of a psychiatrist. He does think that he takes Risperdal but believes this is for anxiety. He denies any history of psychiatric admissions or suicide attempts. Tobacco Use In Past 30 Days: Refused To Answer Alcohol Use: Never Hospital Course Patient was initially hospitalized in [facility] units under the care of Dr. Lawrence but due to medical concerns he was transferred to [facility] psych unit 2 days ago. Appropriate measures of safety were taken immediately, patient had a psychiatric and psychosocial full assessment. At the beginning patient presented with some paranoid ideation regarding his residential facility staff. But, he was calm, cooperative, pleasant, always in a good mood, conversant, without any voiced suicidal homicidal ideation, visual or auditory hallucinations. His behavior was appropriate, without any agitation or aggressive behavior. Patient was restarted in Abilify 5 mg with the idea of increasing medication as needed and as the patient could tolerate, but also with the idea of transferring the patient to Depo medication in the future due to his history of noncompliance. Patient was followed by medical team for underlying medical conditions and was successfully medically clear. At the moment of this evaluation patient does not present any evidence of depression, anxiety, hollie or psychosis. He does have underlying mild paranoia which is most probably a residual symptom of underlying schizoaffective disorder and part of baseline. Results Blood Pressure 153 / 72 Vital Signs Date Time Temp Pulse Resp B/P Pulse Ox O2 Delivery O2 Flow Rate FiO2 06/10/16 06:06 97.5 60 16 153/72 96 06/08/16 10:00 Room Air Laboratory Tests Test 06/08/16 00:05 Red Blood Count 4.27 MIL/MM3 (4.50-5.90) Hemoglobin 12.2 GM/DL (13.0-17.0) Hematocrit 36.3 % (39.0-51.0) Monocytes (%) (Auto) 9.1 % (0.0-8.0) Eosinophils (%) (Auto) 5.4 % (0.0-4.0) Chloride Level 109 MEQ/L (98-107) Blood Urea Nitrogen 24 MG/DL (7-18) Estimat Glomerular Filtration 86 ML/MIN (>89) Rate Random Glucose 137 MG/DL (74-106) Albumin 2.9 GM/DL (3.4-5.0) Urine Turbidity CLOUDY (CLEAR) Urine Protein 30 mg/dL (NEG-TRACE) Urine Occult Blood MOD (NEG) Urine Nitrite POS (NEG) Urine Leukocyte Esterase LARGE (NEG) Urine RBC 31 /hpf (0-3) Urine WBC Clumps MANY (NONE) Urine Bacteria RARE /hpf (NONE) Urine Mucus FEW /lpf (OCC) Laboratory Results Test 06/08/16 00:05 Hemoglobin A1c 5.2 % (4.3-6.0) Summary of Procedures Patient didn't have any procedure Pending results at discharge: No Medications # of Antipsychotic meds at D/C: 1 Approp Antipsych med options 1 - Minimum of three failed multiple trials of monotherapy. 2 - Documented plan to taper to monotherapy due to previous use of multiple meds OR cross-taper in progress at D/C. 3 - Documentation of augmentation of Clozapine. 4 - Justification other than those listed in allowable values 1-3, document here : Discharge Discharge Date: Jun 10, 2016 Discharge Diagnosis: (1) Schizoaffective disorder Diagnosis: Principal ICD Code: F25.9 Mental Status Exam at Disch Elderly man, age appearing, good hygiene, [facility], he is calm , cooperative, childish-like. His tone of voice is acute, soft, low volume, but spontaneous and fluent. Mood is euthymic, affect congruent with mood. Thought process is linear, coherent, relevant. Thought content is devoid of suicidal and homicidal ideation, devoid of visual and auditory hallucinations. Insight, impulse control and judgment is fair, his memory seems to be working in intactly. Pt Condition on Discharge: Stable Discharge Disposition: Discharge Home Discharge Instructions Diet Instructions: As Tolerated, No Restrictions Activities you can perform: Weight Bearing as Dianne Scheduled Appointment: Facility providers Appointment Date: Jun 11, 2016 Appointment Time: 08:00am Discharge Time > 30 minutes Discharge/Advance Care Plan Health Problems: (1) Psychosis Goals to promote your health * To prevent worsening of your condition and complications * To maintain your health at the optimal level Directions to meet your goals Take your medications as prescribed Follow your dietary instruction Follow activity as directed Keep your appointments as scheduled Take your immunizations and boosters as scheduled If your symptoms worsen call your PCP, if no PCP go to Urgent Care Center or Emergency Room For 24/ questions related to your inpatient stay or results of tests pending at discharge, please contact Dr. Chalo Romeo at Smoking is Dangerous to Your Health. Avoid second hand smoking Problem Qualifiers (1) Schizoaffective disorder: Qualified Code: F25.0 - Schizoaffective disorder, bipolar type Chalo Romeo MD Jun 10, 2016 10:38
== END 2016-06-10 11:30 | disposition home or self-care (01) | DRG 885 ==
LOC: NEPD 22:17 → NEDA 06-08 08:54 → H4EA 06-08 12:48
PROVIDERS: ADMIT Psychiatry & Neurology Psychiatry; ATTEND Psychiatry & Neurology Psychiatry
PROC: 0T2BX0Z Change Drainage Device in Bladder, External Approach (ICD-10-PCS; principal; 2016-06-08)
DX: F25.0 Schizoaffective disorder, bipolar type (principal); N39.0 Urinary tract infection, site not specified; T83.511A Infection and inflammatory reaction due to indwelling urethral catheter, initial encounter; F41.9 Anxiety disorder, unspecified; Z59.0 Homelessness; F32.9 Major depressive disorder, single episode, unspecified; I10 Essential (primary) hypertension; Z87.442 Personal history of urinary calculi; Z88.0 Allergy status to penicillin; Z86.14 Personal history of Methicillin resistant Staphylococcus aureus infection; Z87.440 Personal history of urinary (tract) infections; Z91.83 Wandering in diseases classified elsewhere; K40.90 Unilateral inguinal hernia, without obstruction or gangrene, not specified as recurrent; R73.9 Hyperglycemia, unspecified; Z91.19 Patient's noncompliance with other medical treatment and regimen
CPT/HCPCS: 51702; 80053; 80307; 81001; 83036; 85025; 87077; 87086; 87186; 96374; J0696